=== PATIENT | female | born 1985 | race Caucasian/White ===

== ENCOUNTER 2018-02-26 13:10 | Emergency (ER) | payer MEDICAID ==
[2018-02-26 14:11] VITALS: BMI 29.4
[2018-02-26 19:04] VITALS: BP 104/64; PULSE 69; TEMP 97.6; O2SAT 100
--- NOTE | 2018-02-27 08:38 | OBDCSUM ---
Datetime: 02/26/2018 14:07 Discharge Diagnosis, Provider: False Labor - Undelivered
--- NOTE | 2018-02-27 08:39 | OBHP ---
Datetime: 02/26/2018 14:10 IP Adm Impression: Term, intrauterine ; No Active Labor; Intact Membranes IP Admit Plan: Discharge home Admit Comment, IP Provider: IUP at 36w c/o CTX; irreg/non radiating from lower abd; no SROM; no VB; +FM PNC: chart rev'd Dr Katia Johnson PMH: denies PSH: denies NKA PSoH: denies smoking ETOH drugs A; IUP 36w not in labor PLAN: f/u this thur as schedueld labor instructoins; preeclampsia warning Pelvic Type - PN: Adequate Extremities - PN: Normal Abdomen - PN: Normal Back - PN: Normal Breast - PN: Normal Lungs - PN: Normal Heart - PN: Normal Thyroid - PN: Normal Neurologic - PN: Normal HEENT - PN: Normal General - PN: Normal Presentation-Admit: Vertex IP Fetus A Comments: Sonogram ceph FHR - Baseline A Provider: 135 Membranes, Provider: Intact Pool Provider: Negative IP Hx Assessment: The History has been Reviewed and is Current EGA AdmitDate IP: 36.5 IP Chief Complaint: Uterine contractions NICHD Variability Prov Fetus A: Moderate 6-25bpm NICHD Accel Fetus A IP Provider: 15X15 FHR Category Provider Fetus A: Category I NICHD Decel Fetus A IP Provider: None Dilatation, Provider: 0 Effacement, Provider: 0 Genitourinary Exam: Normal DTRs - PN: Normal
== END 2018-02-26 14:20 | disposition home or self-care (01) ==
LOC: H.EROB2 13:10
DX: O26.93 Pregnancy related conditions, unspecified, third trimester (principal); R10.2 Pelvic and perineal pain; Z3A.36 36 weeks gestation of pregnancy

== ENCOUNTER 2018-03-17 09:47 | Emergency (ER) | payer MEDICAID ==
--- NOTE | 2018-03-17 11:24 | OBHP ---
Datetime: 03/17/2018 10:41 IP Adm Impression: Term, intrauterine IP Admit Plan: Observation/Evaluation; Discharge home Admit Comment, IP Provider: 32 y/o female w/ no pmhx at 39.3 wk GA presents to [facility] w/ painful contractions that began yesterday, and became more intense this morning, 7/10 in severity. She denies vaginal bleed and vaginal fluid loss. She endorses movement. OB/Pre- care: Dr. Montalvo Pmhx: gestational hypothyroidsm Famhx: mother has DM SocialHx: denies toxic habits SurgicalHx: denies Allergies: Denies ROS negative except as per HPI Physical exam: Gen: not in acute distress Heart: S1 S2 present, RRR Lungs: normal respiratory effort, clear to auscultation bilaterally Abd: Gravid, normal BS, soft, non-tender SVE: (chaperoned by Nurse Lacie) closed, thick, high Extremities: no swelling/erythema/tenderness Assessment and Plan: 32 y/o female at 39.3 wk IUP SVE: closed cervix [place] shows irregular contractions FHR 150 BPM, w/ moderate varibaility Patient is not in active labor, stable for discharge to home w/ ER precautions given Case discussed w/ Dr. Adithya Tierney, pgyi Pelvic Type - PN: Adequate Extremities - PN: Normal Abdomen - PN: Normal Back - PN: Not Done Breast - PN: Not Done Lungs - PN: Normal Heart - PN: Normal Thyroid - PN: Normal Neurologic - PN: Normal HEENT - PN: Normal General - PN: Normal FHR - Baseline A Provider: 150 Contraction Comments Provider: irregular Gestation - Est Wks by US: 39.3 IP Hx Assessment: The History has been Reviewed and is Current EGA AdmitDate IP: 39.3 Vital Signs Provider: Reviewed; Within Normal Limits IP Chief Complaint: Uterine contractions NICHD Variability Prov Fetus A: Moderate 6-25bpm NICHD Accel Fetus A IP Provider: 15X15 Dilatation, Provider: 0 Effacement, Provider: thick Station, Provider: high Genitourinary Exam: Not Done DTRs - PN: Not Done
== END 2018-03-17 11:00 | disposition home or self-care (01) ==
LOC: H.EROB2 09:47
DX: O26.93 Pregnancy related conditions, unspecified, third trimester (principal); R10.2 Pelvic and perineal pain; Z3A.39 39 weeks gestation of pregnancy; O47.1 False labor at or after 37 completed weeks of gestation

== ENCOUNTER 2018-03-18 01:25 | Inpatient (IN) | payer MEDICAID ==
[2018-03-18 01:53] VITALS: BMI 30.4
[2018-03-18] MEDS: Lactated Ringer's 1,000 ML IV SCH ×6 (03:30→15:34)
[2018-03-18 03:47] LABS: BASO % 0.3 % (0.0-2.0); EOS % 0.1 % (0.0-4.0); HEMOGLOBIN 12.8 g/dL (12.0-16.0); LYMPH # 1.9 K/uL (1.0-4.3); LYMPH % 16.9 % (20.0-40.0); MEAN CELL VOLUME 93.3 fl (81.0-99.0); MEAN CORPUSCULAR HEMOGLOBIN 32.2 pg (27.0-31.0); MEAN CORPUSCULAR HGB CONC 34.5 g/dL (33.0-37.0); MEAN PLATELET VOLUME 10.5 fl (7.2-11.7); MONO # 0.6 K/uL (0.0-0.8); MONO % 5.5 % (0.0-10.0); NEUT # 8.9 K/uL (1.8-7.0); NEUT % 77.2 % (50.0-75.0); NRBC % 0.1 % (0.0-0.0); RBC 3.98 Mil/uL (3.80-5.20); RED CELL DISTRIBUTION WIDTH 12.5 % (11.5-14.5); WHITE BLOOD COUNT 11.5 K/uL (4.8-10.8)
--- NOTE | 2018-03-18 03:51 | OBHP ---
Datetime: 03/18/2018 03:49 IP Adm Impression: Term, intrauterine IP Admit Plan: Admit to unit; Initiate labor protocol Extremities - PN: Normal Abdomen - PN: Normal Back - PN: Normal Lungs - PN: Normal Heart - PN: Normal Neurologic - PN: Normal General - PN: Normal FHR - Baseline A Provider: 140's Membranes, Provider: Intact EGA AdmitDate IP: 39.4 Vital Signs Provider: Reviewed; Within Normal Limits IP Indication for Induction: Not Applicable IP Chief Complaint: Uterine contractions NICHD Variability Prov Fetus A: Moderate 6-25bpm NICHD Accel Fetus A IP Provider: 15X15 FHR Category Provider Fetus A: Category I Dilatation, Provider: 2 Effacement, Provider: 90 Station, Provider: -2 Genitourinary Exam: Normal Datetime: 03/18/2018 03:12 Admit Comment, IP Provider: 32 yo G1 at 39+4 wks w/ EDC 03/21/2018 by LMP c/s 19 wk u/s, reports brennon nful ctxns that started at 9pm, denies LOF, reports VB after earler exam today. Pt received her pren atal care w/ Dr. Montalvo. Pt had transferred her care at [address] Mckeon PMH: Hypothyroid dx'd w/ this preg PSH: None Meds: Levothyroxine 25 mcg All: NKDA Insecticide Sprayer hx: menarche at 13 yo reg periods, pt denies STDs and abn paps Soc hx: Pt denies tobacco, alcohol, and illicit drug use Fam hx: M-DM, F-HTN PN Labs: 08/16/2017 O+, Ab screen neg, RPR neg, HIV neg, HB s Ag neg, Rubella Immune 09/13/2017 Pap neg, UDS neg, CF neg, SMA neg, FX neg, TSH 5.970, urine cx neg, VZV IgG pos AFP tetra neg, TSH 6.24 12/06/2017 glucose 86 01/03/2018 CF neg, DMD neg, FX neg, Panorama low risk, male fetus 01/10/2018 HIV neg, RPR neg 02/24/2009 GBS neg PE: AFVSS Gen'l: Pt appears to be in pain w/ ctxns Heart: RRR Chest: Lungs CTA b/l Abd: soft, NT, gravid Ext: NT, no edema VE: 2/90/ -2 at 0305 EFM: as above [place]: as above A/P: 32 yo G1 at 39+ 4 wks in labor, admitted to L_D FHT reactive, GBS neg Epidural ordered Contraction Comments Provider: irregular w/ irritability
[2018-03-18] MEDS ORDERED: Fentanyl/Bupivacaine HCl 250 ML EPI ONE (04:14)
[2018-03-18] MEDS ORDERED: Bupivacaine HCl 0.25% PF (10 ml) Inj ONE (04:18)
[2018-03-18] MEDS ORDERED: Oxytocin 30 UNIT 30 UNITS/500 ML BAG IV ONE ×3 (10:23→16:33)
--- NOTE | 2018-03-18 10:52 | OBPN ---
Datetime: 03/18/2018 10:47 IP Progress Impression: Normal progression of labor IP Informed Consent Obtain: Vaginal Delivery IP Procedures: Sterile Vag Exam IP Progress Plan: Continue present management Membranes, Provider: Intact Contraction Comments Provider: Irregular FHR - Baseline A Provider: 150 IP Progress Note Comment: Patient feeling comfortable s/p epidural VE = 4-5/50/-1 FHR = 150 mod mabel, +accels, variable decel TOCO = ctxning q irregularly A/P 1. WIll start Pitocin for augmentation 2. CEFM and TOCO 3. Re-evaluate as necessary Vital Signs Provider: Reviewed; Within Normal Limits NICHD Accel Fetus A IP Provider: 15X15 NICHD Variability Prov Fetus A: Moderate 6-25bpm Dilatation, Provider: 4-5 Effacement, Provider: 80 Station, Provider: -1 NICHD Decel Fetus A IP Provider: Variable Datetime: 03/18/2018 03:49 FHR Category Provider Fetus A: Category I Datetime: 03/17/2018 10:41 Gestation - Est Wks by US: 39.3 Datetime: 02/26/2018 14:10 Pool Provider: Negative IP Fetus A Comments: Sonogram ceph Presentation-Admit: Vertex
--- NOTE | 2018-03-18 12:36 | OBPN ---
Datetime: 03/18/2018 12:33 IP Progress Impression: Normal progression of labor IP Informed Consent Obtain: Vaginal Delivery IP Procedures: Sterile Vag Exam IP Progress Plan: Continue present management Membranes, Provider: Ruptured Contraction Comments Provider: q 2 mins FHR - Baseline A Provider: 150 IP Progress Note Comment: Patient progressing well, now 9 cm dilate VE=9/100/-1, AROM FHR = 150 mod mabel, no accels, prolonged deceleration for about 4 mins with return to baseline TOCO = ctxing q 2 mins A/P 1. Patient progressing well, now 9cm and ruptured 2. When feeling increased pressure, will re-evaluate to see if in second stage 3.CEFM and TOCO Vital Signs Provider: Reviewed; Within Normal Limits NICHD Variability Prov Fetus A: Moderate 6-25bpm Dilatation, Provider: 9 Effacement, Provider: 100 Station, Provider: -1 NICHD Decel Fetus A IP Provider: Prolonged
[2018-03-18] MEDS ORDERED: Oxycodone/Acetaminophen 5/325 mg Tab PO PRN ×4 (14:50→19:50)
[2018-03-18] MEDS ORDERED: Benzocaine/Menthol SPRAY TOP PRN ×2 (14:50→19:50)
--- NOTE | 2018-03-18 15:10 | OBDS ---
DELIVERY PERSONNEL Delivery Doctor: Peggy Chun MD Pugger Helper: Drea Saavedra RN MATERNAL INFORMATION Delivery Anesthesia: Epidural Medications in Delivery: pitocin Estimated Blood Loss (ml): 200 Placenta Cultured: No Maternal Complications: None RN Comments: of a viable babyboy with Lusty cry. Skin to skin initiated at . Infant assi gned 9/9 APGARs. Patient tolerated delivery well. Patient had a 3A laceration repaired with no com plications. Breast feeding initated within 30 minutes. Patient and recoverying well. Provider Comments: of live male over intact perineum, 7lbs 15oz, JOHNIE compound presentati on, followed by shoulders and rest of , mouth and nose suctioned, cord clamped and cut, cord bl ood obtained, placenta delivered spontaneously, fundus firm, laceration 3a repaired with 2-0 vicryl r apide, [id number], tolerated procedure well LABOR SUMMARY EDC: 03/21/2018 00:00 No. Babies in Womb: 1 Attempted: No Labor Anesthesia: Epidural LABOR INFORMATION Reason for Induction: Not Applicable Onset of Labor: 03/18/2018 10:30 Complete Dilatation: 03/18/2018 13:00 Oxytocin: Augmentation Group B Beta Strep: Negative Antibiotics # of Doses: 0 Steroids Given: None Reason Steroids Not Administered: Not Applicable Other Reason Not Administered: not required MEMBRANES Membranes Rupture Method: Artificial Rupture of Membranes: 03/18/2018 12:15 Length of Rupture (hrs): 1.82 Amniotic Fluid Color: Clear Amniotic Fluid Amount: Small Amniotic Fluid Odor: Normal STAGES OF LABOR Stage 1 hrs: 2 Stage 1 min: 30 Stage 2 hrs: 1 Stage 2 min: 4 Stage 3 hrs: 0 Stage 3 min: 6 Total Time in Labor hrs: 3 Total Time in Labor min: 40 VAGINAL DELIVERY Episiotomy: None Laceration Extension: Third Degree Laceration Type: Perineal Laceration Repair: Yes Initial Vag Sponge Count: 15 Final Vag Sponge Count: 15 Initial Vag Sharps Count: 2 Final Vag Sharps Count: 2 Sponge Count Correct: Yes Sharps Count Correct: Yes BABY A INFORMATION Delivery Date/Time: 03/18/2018 14:04 Method of Delivery: Vaginal Born in Route : No : N/A Forceps: N/A Vacuum Extraction: N/A Shoulder Dystocia : No SHOULDER DYSTOCIA BABY A Delivery Date/Time: 03/18/2018 14:04 PRESENTATION/POSITION BABY A Presentation: Cephalic Cephalic Presentation: Vertex Vertex Position: Left Occipital Anterior Breech Presentation: N/A PLACENTA INFORMATION BABY A Placenta Delivery Time : 03/18/2018 14:10 Placenta Method of Delivery: Spontaneous Placenta Status: Delivered SCORES BABY A Heart Rate 1 min: >100 bpm Resp Effort 1 min: Good Cry Reflex Irritability 1 min: Cough or Sneeze or Pulls Away Muscle Tone 1 min: Active Motion Color 1 min: Body [place], Extremities Blue Resuscitation Effort 1 min: N/A SCORE 1 MIN: 9 Heart Rate 5 min: >100 bpm Resp Effort 5 min: Good Cry Reflex Irritability 5 min: Cough or Sneeze or Pulls Away Muscle Tone 5 min: Active Motion Color 5 min: Body [place], Extremities Blue Resuscitation Effort 5 min: N/A SCORE 5 MIN: 9 INFANT INFORMATION BABY A Gestational Age at Delivery: 39.0 Gestational Status: Term Infant Outcome : Liveborn Infant Condition : Stable Infant Sex: Male IDENTIFICATION/MEDS BABY A ID Band Number: [id number] ID Band Location: Left Leg; Left Arm WEIGHT/LENGTH BABY A Birthweight (gms): 3590 Weight (lb): 7 Weight (oz): 15 CORD INFORMATION BABY A No. Cord Vessels: 3 Nuchal Cord : N/A Cord Blood Taken: No Infant Suction: Mouth (Annotations: Data stored by [facility] on behalf of user) ASSESSMENT BABY A Infant Complications: None Physical Findings at Delivery: Within Normal Limits Infant Respirations: Appears Normal Care By: Era Saavedra Transferred To: Remains with Mother
[2018-03-18] MEDS ORDERED: Lansinoh for Breast Feeding Mothers TP ONE (21:54)
[2018-03-19] MEDS: Levothyroxine 25 MCG TAB PO SCH (06:15)
[2018-03-19 06:51] LABS: BASO % 0.2 % (0.0-2.0); EOS % 0.3 % (0.0-4.0); HEMOGLOBIN 8.9 g/dL (12.0-16.0); LYMPH # 2.3 K/uL (1.0-4.3); LYMPH % 16.1 % (20.0-40.0); MEAN CELL VOLUME 95.9 fl (81.0-99.0); MEAN CORPUSCULAR HEMOGLOBIN 32.3 pg (27.0-31.0); MEAN CORPUSCULAR HGB CONC 33.7 g/dL (33.0-37.0); MEAN PLATELET VOLUME 9.9 fl (7.2-11.7); MONO % 7.3 % (0.0-10.0); NEUT # 10.8 K/uL (1.8-7.0); NEUT % 76.1 % (50.0-75.0); RBC 2.77 Mil/uL (3.80-5.20); RED CELL DISTRIBUTION WIDTH 12.4 % (11.5-14.5); WHITE BLOOD COUNT 14.1 K/uL (4.8-10.8)
[2018-03-19] MEDS ORDERED: Multivitamin With Minerals Tab PO SCH (09:00)
[2018-03-19] MEDS: Multivitamin With Minerals Tab PO SCH (09:14)
--- NOTE | 2018-03-19 13:38 | US ---
Date of service: 03/19/2018 PROCEDURE: Bilateral lower extremity venous duplex Doppler. HISTORY: BILATERAL CALF PAIN - POST COMPARISON: None available. TECHNIQUE: Bilateral common femoral, superficial femoral, popliteal and posterior tibial veins were evaluated. Flow was assessed with color Doppler, compressibility, assessment of phasic flow and augmentation response. FINDINGS: COMMON FEMORAL VEIN: Right CFV: Unremarkable. Left CFV: Unremarkable. SUPERFICIAL FEMORAL VEIN: Right SFV: Unremarkable. Left SFV: Unremarkable. POPLITEAL VEIN: Right Popliteal: Unremarkable. Left Popliteal: Unremarkable. POSTERIOR TIBIAL VEIN: Right PTV: Unremarkable. Left PTV: Unremarkable. OTHER FINDINGS: None. IMPRESSION: No evidence of deep venous thrombosis.
--- NOTE | 2018-03-19 13:57 | OBPPN ---
Datetime: 03/19/2018 13:55 PP Pain Prov: Within normal limits PP Nausea Prov: Denies PP Flatus Prov: Yes PP BM Prov: Yes PP Breasts Prov: Normal PP Heart Prov: Normal PP Lungs Prov: Normal PP Abdomen/Uterus Prov: Normal PP Lochia Prov: Normal PP Vulva/Perineum Prov: Normal PP CVA Tenderness Prov: Normal PP Extremities Prov: Normal PP Impression Prov: Normal progression PP Plan Prov: Continue present management PP Progress Note Prov: She had leg pain earlier today. She had lower leg dopplers done and vebal rep ort was negative A; S/P day 1 PLAN cont care Vital Signs Provider PP: Reviewed; Within Normal Limits
[2018-03-20] MEDS: Levothyroxine 25 MCG TAB PO SCH (06:18)
[2018-03-20] MEDS: Multivitamin With Minerals Tab PO SCH (09:29)
[2018-03-21 02:15] VITALS: BP 109/62; PULSE 88; RESP 18; TEMP 98.5; O2SAT 98
== END 2018-03-20 17:45 | disposition home or self-care (01) | DRG 373 ==
LOC: H.EROB2 01:25 → H.L&D 03:18 → H.OB/GYN 19:41
PROVIDERS: ADMIT Obstetrics & Gynecology; ATTEND Obstetrics & Gynecology
PROC: 10E0XZZ Delivery of Products of Conception, External Approach (ICD-10-PCS; principal; 2018-03-18)
PROC: 0DQR0ZZ Repair Anal Sphincter, Open Approach (ICD-10-PCS; 2018-03-18)
DX: O76 Abnormality in fetal heart rate and rhythm complicating labor and delivery (principal); O70.21 Third degree perineal laceration during delivery, IIIa; Z3A.39 39 weeks gestation of pregnancy; Z37.0 Single live birth